=== PATIENT | female | born 1980 | race Hispanic/Latino ===

== ENCOUNTER 2017-09-20 14:37 | Emergency (ER) | payer OTHER ==
--- NOTE | 2017-09-20 14:39 | ED PDOC ---
Arrival/HPI - General Time Seen by Provider: 09/20/17 14:38 Historian: Patient - History of Present Illness Narrative History of Present Illness (Text): 09/20/17 14:39 37 y/o female, no significant pmh, nkda, last tetanus under 3 years ago, c/o lt. hand 5th digit finger laceration x 1 hour. Pt. was slicing alvocado and accidentally sliced the lt. hand 5th digit with the knife, no numbness or tingling, no difficulty bending or extending, no palpitation, no rash, no dizziness, no other medical or psychological complaints. Past Medical History - Provider Review Nursing Documentation Reviewed: Yes Family/Social History - Physician Review Nursing Documentation Reviewed: Yes Family/Social History: Unknown Family HX Allergies/Home Meds Allergies/Adverse Reactions: Allergies shellfish derived Allergy (Severe, Verified 09/20/17 14:45) ANAPHYLAXIS Home Medications: Home Meds Medication Instructions Recorded Confirmed Methadone [Methadone] 110 mg PO DAILY 09/20/17 09/20/17 Review of Systems - Review of Systems Constitutional: absent: Fatigue, Fevers Eyes: absent: Vision Changes ENT: absent: Hearing Changes Respiratory: absent: SOB, Cough Cardiovascular: absent: Chest Pain Gastrointestinal: absent: Abdominal Pain, Nausea, Vomiting Skin: Laceration. absent: Rash, Pruritis, Skin Lesions, Abscess Neurological: absent: Headache, Dizziness, Focal Weakness Psychiatric: absent: Anxiety, Depression Physical Exam Vital Signs Reviewed: Yes Vital Signs Temp Pulse Resp BP Pulse Ox 09/20/17 14:49 97.6 F 70 18 130/81 99 Temperature: Afebrile Blood Pressure: Normal Pulse: Regular Respiratory Rate: Normal Appearance: Positive for: Well-Appearing, Non-Toxic, Comfortable Pain Distress: Mild Mental Status: Positive for: Alert and Oriented X 3 - Systems Exam Head: Present: Atraumatic, Normocephalic Pupils: Present: PERRL Extroacular Muscles: Present: EOMI Conjunctiva: Present: Normal Mouth: Present: Moist Mucous Membranes Neck: Present: Normal Range of Motion Respiratory/Chest: Present: Clear to Auscultation, Good Air Exchange. No: Respiratory Distress, Accessory Muscle Use Cardiovascular: Present: Regular Rate and Rhythm, Normal S1, S2. No: Murmurs Abdomen: Present: Normal Bowel Sounds. No: Tenderness, Distention, Peritoneal Signs Back: Present: Normal Inspection Upper Extremity: Present: Normal Inspection, Other (Lt. hand 5th digit: visible approx. 1.5cm superficial laceration noted on the medial aspect of the 5th digit superficial to intermediate depth, FROM without limtation, sensation intact, motor 5/5, +radial pulse, capillary refill< 2 seconds, neurovascular intact. ). No: Cyanosis, Edema Lower Extremity: Present: Normal Inspection. No: Edema Neurological: Present: GCS=15, CN II-XII Intact, Speech Normal Skin: Present: Warm, Dry, Normal Color. No: Rashes Psychiatric: Present: Alert, Oriented x 3, Normal Insight, Normal Concentration Medical Decision Making ED Course and Treatment: 09/20/17 14:56 -lidocaine -Urine hcg 09/20/17 15:28 -Urine hcg negative -sensation intact, motor 5/5, wound irrigated with normal saline 1000cc, clean with betadine, 5-0 nylon made 3 sutures with good approximation, sterile procedure, hemostasis obtained, bacitracin and gauze dressing applied, sensation intact, motor 5/5, +radial pulse, capillary refill< 2 seconds, neurovascular intact, total procedure time 15 minutes under sterile procedure, less than 3cc of blood loss, no complication during procedure. -Discharge home with keflex, bacitracin oinment, motrin, keep it dry and clean for 48 hours, clean with soap and water twice daily, sutures need to be removed by day 12-13, avoid strenuous exercise or activity, follow up with your own pmd and hand specialist within 2 days, return to the ER for any new or worsening signs or symptoms. 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 Disposition/Present on Arrival - Present on Arrival Any Indicators Present on Arrival: No History of DVT/PE: No History of Uncontrolled Diabetes: No Urinary Catheter: No History of Decub. Ulcer: No - Disposition Have Diagnosis and Disposition been Completed?: Yes Diagnosis: Finger laceration Disposition Time: 15:28 Patient Plan: Discharge Patient Problems: Current Active Problems Problem Status Onset Finger laceration Acute Condition: GOOD Additional Instructions: -Discharge home with keflex, bacitracin oinment, motrin, keep it dry and clean for 48 hours, clean with soap and water twice daily, sutures need to be removed by day 12-13, avoid strenuous exercise or activity, follow up with your own pmd and hand specialist within 2 days, return to the ER for any new or worsening signs or symptoms. Prescriptions: Bacitracin Ointment [Bacitracin] 1 appful TOP BID #15 g Cephalexin [cephalexin] 500 mg PO TID #27 cap Ibuprofen [Motrin] 600 mg PO QID PRN #30 tab PRN Reason: Other Referrals: [facility] [place] - Follow up with primary Toyin Leal MD [Staff Provider] - Follow up with primary Forms: WORK NOTE
[2017-09-20] MEDS ORDERED: Lidocaine 1% Inj (20ml) IJ STA (14:49)
[2017-09-20 14:50] VITALS: BP 130/81; PULSE 70; RESP 18; TEMP 97.6; O2SAT 99
== END 2017-09-20 15:40 | disposition home or self-care (01) ==
LOC: ED 14:37
DX: S61.217A Laceration without foreign body of left little finger without damage to nail, initial encounter (principal); W26.0XXA Contact with knife, initial encounter; Y93.G1 Activity, food preparation and clean up; Y92.009 Unspecified place in unspecified non-institutional (private) residence as the place of occurrence of the external cause

== ENCOUNTER 2018-03-08 21:23 | Emergency (ER) | payer MEDICAID, OTHER ==
[2018-03-08 22:01] VITALS: RESP 18
--- NOTE | 2018-03-08 22:21 | ED PDOC ---
Arrival/HPI - General Historian: Patient - History of Present Illness Time/Duration: > month Symptom Course: Worsening Quality: Burning Severity Level: 10 Activities at Onset: Rest <Tanvir Chavis - Last Filed: 03/08/18 22:17> <Kyler Gutierrez - Last Filed: 03/09/18 00:36> - General Chief Complaint: Finger,Hand,&Wrist Time Seen by Provider: 03/08/18 21:24 - History of Present Illness Narrative History of Present Illness (Text): 03/08/18 22:17 Pt is a 37 yo F with PMH of opioid abuse on methadone presents to ED due to bilateral hand pain. Patient states that she has already been diagnosed with carpal tunnel syndrome with nerve conduction studies. Patient failed conservative therapies and was scheduled to have surgery on her left wrist, however due to insurance change she is unable to follow up with her hand surgeon. Currently, patient states that the right wrist is worse because she got a steroid shot in her left wrist. Patient states that the entire dorsum of her hand is numb. Patient complains of radiating pain and numbness that originates from her hands up her arm. Patient has a cock up splint for the left hand that helps. Patient denies any trauma, weakness, any body aches/pain, fever , chills, CP, SOB, FISH, or dizziness. (Tanvir Chavis) Past Medical History - Infectious Disease Hx of Infectious Diseases: None - Cardiac Hx Cardiac Disorders: No - Pulmonary Hx Respiratory Disorders: No - Neurological Hx Neurological Disorder: No - HEENT Hx HEENT Disorder: No - Renal Hx Renal Disorder: No - Endocrine/Metabolic Hx Endocrine Disorders: No - Hematological/Oncological Hx Blood Disorders: No - Integumentary Hx Dermatological Disorder: No - Musculoskeletal/Rheumatological Hx Musculoskeletal Disorders: No - Gastrointestinal Hx Gastrointestinal Disorders: No - Genitourinary/Gynecological Hx Genitourinary Disorders: No - Psychiatric Hx Psychophysiologic Disorder: No Hx Substance Use: No - Surgical History Other/Comment: vaginal - Anesthesia Hx Anesthesia: Yes Hx Anesthesia Reactions: No Hx Malignant Hyperthermia: No <Tanvir Chavis - Last Filed: 03/08/18 22:17> - Provider Review Nursing Documentation Reviewed: Yes <Kyler Gutierrez - Last Filed: 03/09/18 00:36> Family/Social History Family/Social History: No Known Family HX Smoking Status: Heavy Smoker > 10 Cigarettes Daily Hx Alcohol Use: No Hx Substance Use: No <PalmiraAgTanvir - Last Filed: 03/08/18 22:17> - Physician Review Nursing Documentation Reviewed: Yes <Kyler Gutierrez - Last Filed: 03/09/18 00:36> Allergies/Home Meds <Tanvir Chavis - Last Filed: 03/08/18 22:17> <BrendaKyler - Last Filed: 03/09/18 00:36> Allergies/Adverse Reactions: Allergies shellfish derived Allergy (Severe, Verified 09/20/17 14:45) ANAPHYLAXIS Home Medications: Home Meds Medication Instructions Recorded Confirmed Methadone [Methadone] 110 mg PO DAILY 09/20/17 03/08/18 Review of Systems - Physician Review All systems were reviewed & negative as marked: Yes (12 point ROS reviewed and is negative other than what is stated in HPI.) <Ag ChavisTanvir - Last Filed: 03/08/18 22:17> - Review of Systems Constitutional: absent: Fevers Respiratory: absent: SOB <Kyler Gutierrez - Last Filed: 03/09/18 00:36> Physical Exam Vital Signs Reviewed: Yes Temperature: Afebrile Blood Pressure: Normal Pulse: Regular Respiratory Rate: Normal Appearance: Positive for: Non-Toxic Pain Distress: Moderate Mental Status: Positive for: Alert and Oriented X 3 - Systems Exam Head: Present: Atraumatic, Normocephalic Pupils: Present: PERRL Extroacular Muscles: Present: EOMI Conjunctiva: Present: Normal Ears: Present: Normal Mouth: Present: Moist Mucous Membranes Neck: Present: Normal Range of Motion, Paraspinal Tenderness Respiratory/Chest: Present: Clear to Auscultation. No: Wheezes, Rales, Rhonchi Cardiovascular: Present: Regular Rate and Rhythm, Normal S1, S2. No: Murmurs, Rub, Gallop Abdomen: No: Tenderness, Distention, Rebound, Guarding Upper Extremity: Present: Neurovascularly Intact, Other (Positive Tinel's sign b /l wrist R > L, Positive Phalen's test b/l). No: Swelling Lower Extremity: Present: Normal Inspection Neurological: Present: GCS=15, CN II-XII Intact, Other (Positive Spurling's Test R>L) Skin: Present: Warm, Dry, Normal Color. No: Rashes Psychiatric: Present: Alert, Oriented x 3, Normal Insight, Normal Concentration <Tanvir Chavis - Last Filed: 03/08/18 22:17> Vital Signs Temp Pulse Resp BP Pulse Ox 03/08/18 22:33 98.7 F 70 18 115/70 99 03/08/18 22:00 98.6 F 68 18 113/72 96 Medical Decision Making <Tanvir Chavis - Last Filed: 03/08/18 22:17> <Kyler Gutierrez - Last Filed: 03/09/18 00:36> ED Course and Treatment: 03/08/18 22:25 37 yo F presents to ED with worsening of her carpal tunnel pain. Plan: - Toradol - Cock up splint, right - Discharge with rx for neurontin - Advised follow up with hand specialist and neurologist/neurosurgeon due to cervical radiculopathy - Recommend carpal tunnel exercises 3 times a day (Tanvir Chavis) 03/08/18 Patient Seen With Resident: In agreement with resident note which contains more detail about the patient. Patient was seen and evaluated with resident. Came up with plan and treatment together. (Kyler Gutierrez) - Medication Orders Current Medication Orders: Discontinued Medications Ketorolac Tromethamine (Toradol) 60 mg IM STAT STA Stop: 03/08/18 22:03 Last Admin: 03/08/18 22:31 Dose: 60 mg MAR Pain Assessment Document 03/08/18 22:31 (Rec: 03/08/18 22:31 BAIRON [email or web address]) Pain Reassessment Is this a pain reassessment? Yes IM Administration Charges Document 03/08/18 22:31 (Rec: 03/08/18 22:31 [id number]) Injection Site MAR Injection Site Right Deltoid Charges for Administration # of IM Administrations 1 Disposition/Present on Arrival - Present on Arrival Any Indicators Present on Arrival: No History of DVT/PE: No History of Uncontrolled Diabetes: No Urinary Catheter: No History of Decub. Ulcer: No History Surgical Site Infection Following: None - Disposition Have Diagnosis and Disposition been Completed?: Yes Disposition Time: 22:33 Patient Plan: Discharge <Tanvir Chavis - Last Filed: 03/08/18 22:17> <RiteshkelKyler lott - Last Filed: 03/09/18 00:36> - Disposition Diagnosis: Carpal tunnel syndrome, Cervical radiculopathy Disposition: HOME/ ROUTINE Condition: STABLE Discharge Instructions (ExitCare): Carpal Tunnel Syndrome (DC), Radiculopathy ( DC), Carpal Tunnel Exercises Additional Instructions: 1. Follow up with hand specialist within 1 week 2. Recommend follow up with neurologist or neurosurgeon for cervical radiculopathy; obtain referral from PMD 3. Take medications as prescribed 4. Use splints at night 5. Recommend carpal tunnel exercises 6. Return to ED if symptoms worsen Prescriptions: Gabapentin [Neurontin] 300 mg PO TID #30 cap Referrals: Moni Ann MD [Staff Provider] - Follow up with primary Forms: [employer] (Chilean)
[2018-03-08 23:45] VITALS: BP 115/70; PULSE 70; TEMP 98.7; O2SAT 99
== END 2018-03-08 22:40 | disposition home or self-care (01) ==
LOC: ED 21:23
DX: G56.03 Carpal tunnel syndrome, bilateral upper limbs (principal)
CPT/HCPCS: 96372; 99283; J1885

== ENCOUNTER 2018-08-04 15:19 | Emergency (ER) | payer MEDICAID ==
[2018-08-04 15:22] VITALS: BMI 27.3
[2018-08-04 15:26] VITALS: BP 142/76; PULSE 65; RESP 18; TEMP 97.9; O2SAT 96
[2018-08-04] MEDS ORDERED: DiphenhydrAMINE 50 mg/ml Inj IVP ONE (15:36)
[2018-08-04] MEDS ORDERED: DiphenhydrAMINE 50 mg/ml Inj ONE (15:38)
--- NOTE | 2018-08-04 15:39 | ED PDOC ---
Arrival/HPI - General Chief Complaint: Finger,Hand,&Wrist Time Seen by Provider: 08/04/18 15:22 Historian: Patient, Partner - History of Present Illness Time/Duration: Other (yesterday) Symptom Onset: Gradual Symptom Course: Worsening Quality: Aching Severity Level: Moderate Associated Symptoms (Text): 08/04/18 15:36 Patient complains of an erythematous blanching painful swollen bilateral dorsal hand rash since yesterday. 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 No dyspnea or dysphagia. The rash is limited to bilateral dorsal hands. She is unsure what she has been exposed to. Past Medical History - Infectious Disease Hx of Infectious Diseases: None - Cardiac Hx Cardiac Disorders: No - Pulmonary Hx Asthma: Yes - Neurological Hx Neurological Disorder: No - HEENT Hx HEENT Disorder: No - Renal Hx Renal Disorder: No - Endocrine/Metabolic Hx Endocrine Disorders: No - Hematological/Oncological Hx Blood Disorders: No - Integumentary Hx Dermatological Disorder: No - Musculoskeletal/Rheumatological Hx Musculoskeletal Disorders: Yes Other/Comment: Carpal tunnel - Gastrointestinal Hx Gastrointestinal Disorders: No - Genitourinary/Gynecological Hx Genitourinary Disorders: No - Psychiatric Hx Psychophysiologic Disorder: No Hx Substance Use: No - Surgical History Other/Comment: vaginal . L breast biopsy - Anesthesia Hx Anesthesia: Yes Hx Anesthesia Reactions: No Hx Malignant Hyperthermia: No Family/Social History - Physician Review Nursing Documentation Reviewed: Yes Family/Social History: Unknown Family HX Smoking Status: Heavy Smoker > 10 Cigarettes Daily Hx Alcohol Use: No Hx Substance Use: No Allergies/Home Meds Allergies/Adverse Reactions: Allergies shellfish derived Allergy (Severe, Verified 09/20/17 14:45) ANAPHYLAXIS Home Medications: Home Meds Medication Instructions Recorded Confirmed Methadone 110 mg PO DAILY 09/20/17 08/04/18 Review of Systems - Physician Review All systems were reviewed & negative as marked: Yes - Review of Systems ENT: Normal Respiratory: Normal Skin: Rash, Pruritis Physical Exam Vital Signs Temp Pulse Resp BP Pulse Ox 08/04/18 15:26 97.9 F 65 18 142/76 96 Temperature: Afebrile Blood Pressure: Normal Pulse: Regular Respiratory Rate: Normal Appearance: Positive for: Well-Appearing, Non-Toxic, Comfortable Pain Distress: None Mental Status: Positive for: Alert and Oriented X 3 - Systems Exam Pharnyx: Present: Normal. No: ERYTHEMA, EXUDATE, TONSILS ENLARGED Respiratory/Chest: Present: Clear to Auscultation, Good Air Exchange. No: Respiratory Distress, Accessory Muscle Use Skin: Present: Warm, Dry, Rashes (Erythematous blanching tender swollen bilateral dorsal hand and finger rash consistent with contact dermatitis.), Normal Color Medical Decision Making - Medication Orders Current Medication Orders: Diphenhydramine HCl (Benadryl) 50 mg IVP ONCE ONE Stop: 08/04/18 15:37 Methylprednisolone (Solu-Medrol) 125 mg IVP ONCE ONE Stop: 08/04/18 15:37 Disposition/Present on Arrival - Present on Arrival Any Indicators Present on Arrival: No History of DVT/PE: No History of Uncontrolled Diabetes: No Urinary Catheter: No History of Decub. Ulcer: No History Surgical Site Infection Following: None - Disposition Have Diagnosis and Disposition been Completed?: Yes Diagnosis: Contact dermatitis Disposition: HOME/ ROUTINE Disposition Time: 15:43 Patient Plan: Discharge Condition: GOOD Discharge Instructions (ExitCare): Contact Dermatitis (DC) Additional Instructions: Fine and avoid the allergen. Follow-up with PMD. Follow up in ER as needed. Benadryl [id number] as directed on bottle. Prescriptions: predniSONE [predniSONE Tab] 20 mg PO DAILY #10 tab Forms: [employer] (Armenian), WORK NOTE
== END 2018-08-04 15:51 | disposition home or self-care (01) ==
LOC: ED 15:19
DX: L25.9 Unspecified contact dermatitis, unspecified cause (principal)
CPT/HCPCS: 96374; 96375; 99284; J1200; J2930